=== PATIENT | female | born 1945 | race Caucasian/White ===

== ENCOUNTER 2016-09-11 09:55 | Emergency (ER) | payer MEDICARE, OTHER | END 2016-09-11 11:36 | disposition home or self-care (01) | LOC: FER 09:55 | DX: L50.0 Allergic urticaria (principal); T45.1X5A Adverse effect of antineoplastic and immunosuppressive drugs, initial encounter; C90.00 Multiple myeloma not having achieved remission; F17.210 Nicotine dependence, cigarettes, uncomplicated; Z79.82 Long term (current) use of aspirin; Z79.52 Long term (current) use of systemic steroids; Z79.899 Other long term (current) drug therapy | CPT/HCPCS: J2930 ==

== ENCOUNTER 2020-08-05 05:24 | Day surgery (SDC) | payer MEDICARE, OTHER ==
[~2020-08-05 05:24] MED LIST: CYMBALTA20 MG PO; HCTZ12.5 MG PO; HYDROCHLOROTH12.5 MG PO; MELOXICAM15 MG PO; PERCOCET 5-3251 EACH PO; POTASSIUM CHLO10 MEQ PO; PRINIVIL10 MG PO; TRAMADOL HCL50 MG PO; VIT D PO; ZOCOR40 MG PO
[2020-08-05] MEDS ORDERED: PERCOCET 5-3251 EACH PO (11:04)
[2020-08-06 05:35] LABS: BASOPHIL 0.1 % (0-2); EOSINOPHIL 0.3 % (0-7); HCT 35.2 % (37.0-47.0); HGB 11.1 g/dl (12.5-16.0); LYMPHOCYTE 16.1 % (15-48); MCH 30.5 pg (25.0-31.0); MCHC 31.5 g/dL (32.0-36.0); MCV 96.7 fL (78.0-100.0); MONOCYTE 8.1 % (0-12); MPV 12.1 fL (6.0-9.5); NRBC 0; PLT 97 K/uL (150-400); RBC 3.64 M/uL (4.20-5.40); RDW 13.5 % (11.5-14.0); WBC 7.9 K/uL (4.0-10.5)
[2020-08-06 05:55] LABS: BUN/CREAT RATIO (CALC) 18.9 RATIO; CREATININE 0.9 mg/dL (0.51-0.95); POTASSIUM 4.7 mmol/L (3.5-5.1)
[2020-08-06] MEDS ORDERED: ASPIRIN81 MG PO (09:42)
[2020-08-06] MEDS ORDERED: ULTRA-LIGHT RO1 EACH XX (09:42)
[2020-08-06] MEDS ORDERED: FEOSOL325 MG PO (09:42)
--- NOTE | 2020-08-06 09:50 | NUR ---
PT. TO D/C HOME. PT. REQUESTED [facility] FOR PT/OT AND NURSING ASSESSMENT. AFFLIATION EXPLAINED. [facility] TO DELIVER A ROLLING WALKER UPON DISHCARGE.
== END 2020-08-06 12:07 | disposition home health service (06) ==
LOC: FMS 05:24 → FAS 05:24 → FSDC 05:24 → FMS 07:00 → EDSTATUS 07:00 → FMS 09:16 → FSDC 09:16 → FMS 09:16 → FAS 08-06 12:07
PROVIDERS: Orthopaedic Surgery
DX: M16.12 Unilateral primary osteoarthritis, left hip (principal); I10 Essential (primary) hypertension; R01.1 Cardiac murmur, unspecified; E78.5 Hyperlipidemia, unspecified; F17.210 Nicotine dependence, cigarettes, uncomplicated; Z79.82 Long term (current) use of aspirin; Z79.899 Other long term (current) drug therapy; Z88.0 Allergy status to penicillin; Z20.822 Contact with and (suspected) exposure to COVID-19
CPT/HCPCS: 36415; 73501; 76000; 80048; 85025; 86850; 86900; 86901; 94010; 94760; 94762; 97116; 97162; 97166; 97530-GP; 97535; C1776; J0171; J1100; J1170; J1885; J2250; J2270; J2310; J2405; J2704; J2710; J2795; J3010; J3370; J7050; J7120; U0002

== ENCOUNTER 2021-11-10 09:32 | Emergency (ER) | payer MEDICARE, OTHER ==
[~2021-11-10 09:32] MED LIST changes: +ASPIRIN81 MG PO; +FEOSOL325 MG PO; +ULTRA-LIGHT RO1 EACH XX
[2021-11-10] MEDS ORDERED: ULTRAM50 MG PO (10:54)
== END 2021-11-10 11:18 | disposition home or self-care (01) ==
LOC: FER 09:32
DX: M25.512 Pain in left shoulder (principal); G89.29 Other chronic pain; F17.200 Nicotine dependence, unspecified, uncomplicated
CPT/HCPCS: 73030

== ENCOUNTER 2022-01-26 05:25 | Day surgery (SDC) | payer MEDICARE, OTHER ==
[~2022-01-26] VITALS: Ht 155 cm; Wt 51.0 kg
[~2022-01-26 05:25] MED LIST changes: +ACYCLOVIR400 MG PO; +ASPIRIN325 M1 PO; +BENADRYL ALLERG25 MG PO; +DARZALEX100 MG/5 M SC; +DEXAMETHASONE 4M4 MG PO; +NORCO 5/3251 EACH PO; +POMALYST3 MG PO; +SULFAMETHOXAZO1 EACH PO; +ULTRAM50 MG PO
--- NOTE | 2022-01-26 13:05 | NUR ---
PT SIGNED CHOICE LETTER SHE WANTS [facility]; S[facility]PTED [facility]FERRAL; PLEASE CALL [phone] ONCE PT IS DISCHARGED TO HOME; PT ALREADY HAS ROLLING WALKER AND WILL BE ON [facility]SA
[2022-01-27 06:30] LABS: BASOPHIL 0.1 % (0-2); EOSINOPHIL 0.6 % (0-7); HCT 33.7 % (37.0-47.0); HGB 10.8 g/dl (12.5-16.0); LYMPHOCYTE 12.1 % (15-48); MCH 31.7 pg (25.0-31.0); MCV 98.8 fL (78.0-100.0); MONOCYTE 9.7 % (0-12); MPV 12.4 fL (6.0-9.5); NRBC 0; PLT 80 K/uL (150-400); RBC 3.41 M/uL (4.20-5.40); RDW 14.6 % (11.5-14.0); WBC 8.3 K/uL (4.0-10.5)
[2022-01-27 06:58] LABS: BUN/CREAT RATIO (CALC) 12.2 RATIO; CREATININE 0.9 mg/dL (0.51-0.95)
[2022-01-27] MEDS ORDERED: XARELTO10 MG PO (08:46)
[2022-01-27] MEDS ORDERED: FEOSOL325 MG PO (08:46)
--- NOTE | 2022-01-27 11:07 | NUR ---
PT DISCHARGED WITH ALL PERSONAL BELONGINGS. VSS AT TIME OF DISCHARGE. IV REMOVED WITHOUT S/S INFECTION OR BLEEDING. PT AND FAMILY VERBALIZED D/C INTRUCTIONS AND WHEN TO MAKE FOLLOW UP APPTS. PT LEFT VIA PRIVATE VEHICLE.
== END 2022-01-27 11:05 | disposition home or self-care (01) ==
LOC: FAS 05:25 → FOR 07:00 → FMS 07:44 → FOR 08:30 → FAS 01-27 11:05
PROVIDERS: Orthopaedic Surgery
DX: M16.11 Unilateral primary osteoarthritis, right hip (principal); I10 Essential (primary) hypertension; E78.5 Hyperlipidemia, unspecified; F17.210 Nicotine dependence, cigarettes, uncomplicated; D69.6 Thrombocytopenia, unspecified; C90.00 Multiple myeloma not having achieved remission; Z79.82 Long term (current) use of aspirin; Z79.899 Other long term (current) drug therapy; Z88.0 Allergy status to penicillin; Z96.642 Presence of left artificial hip joint
CPT/HCPCS: 36415; 73501; 76000; 80048; 85025; 86850; 86900; 86901; 94010; 94760; 97110; 97162; 97165; 97530-GP; 97535; C1776; J0171; J1100; J1170; J1885; J2250; J2270; J2370; J2405; J2704; J2795; J3010; J3370; J7050; J7120